=== PATIENT | male | born 1965 | race Caucasian/White ===

== ENCOUNTER 2018-09-17 18:16 | Emergency (ER) | payer BC ==
[2018-09-17] MEDS: KETOROLAC 60 MG INJ IM (19:13)
== END 2018-09-17 20:09 | disposition home or self-care (01) ==
LOC: FTE 18:16
DX: M25.512 Pain in left shoulder (principal); I10 Essential (primary) hypertension
CPT/HCPCS: 73030; 93971; 96372; 99285-25